=== PATIENT | male | born 1985 ===

== ENCOUNTER 2016-05-05 11:23 | Inpatient (IN) | payer SELFPAY ==
[2016-05-05] MEDS ORDERED: Piperacillin/Tazobact 3.375 gm Inj IVPB ONE (12:21)
[2016-05-05] MEDS ORDERED: Piperacillin/Tazobact 3.375 GM in Sodium Chloride 0.9% 100 ML IVPB STA (12:23)
--- NOTE | 2016-05-05 12:42 | ED PDOC ---
HPI: General Adult Time Seen by Provider: 05/05/16 11:42 Chief Complaint (Nursing): Fever Chief Complaint (Provider): Fever History Per: Patient Additional Complaint(s): Pt. states on Monday he developed fever which resolved after taking Dayquil. Yesterday fever returned along with R sided facial pain and swelling. Pt. was seen by clinic and was instructed to come to ED for further evaluation. Denies sore throat, rash, cough, congestion, ear pain, headache. Of note, pt. states he is HIV+ and last viral load and CD4 count were done 2 months ago and were WNL. Past Medical History Reviewed: Historical Data, Nursing Documentation, Vital Signs Vital Signs: Last Vital Signs Temp 99.6 F 05/05/16 17:55 Pulse 78 05/05/16 17:55 Resp 18 05/05/16 18:09 BP 120/78 05/05/16 17:55 Pulse Ox 98 05/05/16 19:57 - Medical History PMH: HIV, Seizures - Family History Family History: States: No Known Family Hx - Immunization History Hx Tetanus Toxoid Vaccination: No Hx Influenza Vaccination: No Hx Pneumococcal Vaccination: No - Home Medications Home Medications: Ambulatory Orders Medication Instructions Recorded Darunavir/Cobicistat [Prezcobix 1 tab PO DAILY 05/05/16 800 mg-150 mg Tablet] Dolutegravir Sodium [Tivicay] 50 mg PO DAILY 05/05/16 Sulfamethoxazole/Trimethoprim 1 tab PO DAILY 05/05/16 [Bactrim DS Tab] Terbinafine HCl [Lamisil] 250 mg PO DAILY 05/05/16 - Allergies Allergies/Adverse Reactions: Allergies Allergy/AdvReac Type Severity Reaction Status Date / Time No Known Allergies Allergy Verified 05/05/16 11:36 Review of Systems ROS Statement: Except As Marked, All Systems Reviewed And Found Negative Constitutional: Positive for: Fever Physical Exam - Reviewed Nursing Documentation Reviewed: Yes Vital Signs Reviewed: Yes - Physical Exam Appears: Positive for: Well, Non-toxic, No Acute Distress Head Exam: Positive for: ATRAUMATIC, NORMAL INSPECTION, NORMOCEPHALIC Skin: Positive for: Normal Color, Warm, DRY Eye Exam: Positive for: EOMI, Normal appearance, PERRL ENT: Positive for: TM Is/Are (non-erythematous, non-bulging b/l), Other (R sided preauricular swelling without fluctuance and with mild tenderness; no mastoid tenderness b/l). Negative for: Pharyngeal Erythema, Tonsillar Exudate, Tonsillar Swelling Neck: Positive for: Normal, Painless ROM Cardiovascular/Chest: Positive for: Regular Rate, Rhythm Respiratory: Positive for: CNT, Normal Breath Sounds Gastrointestinal/Abdominal: Positive for: Normal Exam, Soft. Negative for: Tenderness Back: Positive for: Normal Inspection Extremity: Positive for: Normal ROM Neurologic/Psych: Positive for: Alert, Oriented - Laboratory Results Result Diagrams: 05/05/16 12:50 05/05/16 12:50 - ECG O2 Sat by Pulse Oximetry: 98 - Progress ED Course And Treament: Labs ordered. CT neck ordered. Zosyn IV given. Pt placed in isolation. Pt. evaluated by Dr. Ding in ED. Buccal mucosa mumps test done. [facility] and information given. Case d/w NATALIIA Malik resident, and arrangements made for admission. Disposition - Clinical Impression Clinical Impression: Parotitis - Patient ED Disposition Is Patient to be Admitted: Yes - Disposition Disposition Time: 17:03 Condition: STABLE
[2016-05-05 13:02] LABS: VENOUS BLOOD GAS PCO2 53 mmHg (40-60); VENOUS BLOOD PH 7.33 (7.32-7.43)
[2016-05-05 13:09] LABS: BASO % 0.6 % (0.0-2.0); EOS % 0.3 % (0.0-4.0); HEMATOCRIT 42.4 % (35.0-51.0); LYMPH # 1.7 K/uL (1.0-4.3); LYMPH % 33.4 % (20.0-40.0); MEAN CELL VOLUME 86.7 fl (80.0-94.0); MEAN CORPUSCULAR HEMOGLOBIN 28.7 pg (27.0-31.0); MEAN CORPUSCULAR HGB CONC 33.1 g/dL (33.0-37.0); MEAN PLATELET VOLUME 7.7 fl (7.2-11.7); MONO # 1.2 K/uL (0.0-0.8); MONO % 22.7 % (0.0-10.0); NEUT # 2.2 K/uL (1.8-7.0); NRBC % 0.2 % (0.0-0.0); PLATELET COUNT 221 K/uL (130-400); RED CELL DISTRIBUTION WIDTH 13.5 % (11.5-14.5); WHITE BLOOD COUNT 5.2 K/uL (4.8-10.8)
[2016-05-05 13:17] LABS: CHLORIDE 97 mmol/L (98-107)
[2016-05-05 13:18] LABS: POTASSIUM 4.4 MMOL/L (3.6-5.0); SODIUM 137 mmol/l (132-148)
[2016-05-05 13:20] LABS: ALKALINE PHOSPHATASE 84 U/L (38-126); ALT/SGPT 40 U/L (21-72); AST/SGOT 41 U/L (17-59); BILIRUBIN,TOTAL 0.7 mg/dl (0.2-1.3); BLOOD UREA NITROGEN 11 mg/dl (9-20); CARBON DIOXIDE 24 mmol/L (22-30); GFR AFRICAN-AMERICAN > 60; GLUCOSE,RANDOM 87 mg/dL (75-110)
[2016-05-05 13:21] LABS: CALCIUM 9.1 mg/dL (8.4-10.2)
--- NOTE | 2016-05-05 13:56 | RAD ---
PROCEDURE: Radiographs of the neck (soft tissue). HISTORY: R sided neck swelling COMPARISON: None. TECHNIQUE: Frontal and Lateral Radiographs of the neck, optimized for soft tissue visualization. FINDINGS: SOFT TISSUES: No prevertebral soft tissue swelling. No radiopaque foreign body seen. CERVICAL SPINE: There is straightening of the cervical spine with loss of normal cervical lordosis. The disc heights are maintained. OTHER FINDINGS: None. IMPRESSION: No evidence of prevertebral soft tissue swelling or radiopaque foreign body. Straightening of the cervical spine may be positional or related to muscle spasm.
[2016-05-05 14:23] LABS: RBC URINE < 1 /hpf (0-3); URINE BACTERIA RARE (<OCC); URINE BILIRUBIN NEGATIVE (NEGATIVE); URINE BLOOD NEGATIVE (NEGATIVE); URINE CALCIUM OXALATE CRYSTALS OCC /hpf (<OCC); URINE COLOR YELLOW (YELLOW); URINE GLUCOSE (UA) NEG (Normal); URINE KETONE 80 mg/dL (NEGATIVE); URINE LEUKOCYTE ESTERASE NEG Leu/uL (Negative); URINE PROTEIN 30 mg/dL (NEGATIVE); URINE UROBILINOGEN 0.2-1.0 mg/dL (0.2-1.0); WBC URINE 2 /hpf (0-5)
[2016-05-05 14:35] LABS: NEUTROPHIL 48 % (42-75); TOTAL CELLS COUNTED 100
[2016-05-05] MEDS ORDERED: Sodium Chloride 0.9% 50 ML IV ONE (16:09)
[2016-05-05] MEDS ORDERED: Iohexol 300 100 ML IJ ONE (16:09)
--- NOTE | 2016-05-05 16:52 | CT ---
PROCEDURE: CT NECK WITH CONTRAST HISTORY: R sided neck swelling COMPARISON: None TECHNIQUE: CT of the neck with intravenous contrast. Coronal and sagittal reformats generated. Intravenous contrast dose: 80 cc Omnipaque 300. Radiation dose: DLP 430.84 mGy-cm FINDINGS: NASOPHARYNX: Unremarkable. SUPRAHYOID NECK: Unremarkable oropharynx, oral cavity, parapharyngeal space and retropharyngeal space. INFRAHYOID NECK: Unremarkable larynx, hypopharynx, and supraglottic space. Vocal cords intact. MASS: None. GLANDS: Edematous hypervascular findings in the right parotid gland affecting both deep and superficial lobes consistent with acute parotitis. Adjacent cutaneous and subcutaneous edema noted. No evidence of dilated duct or stone within the duct. Normal size thyroid gland, without nodule. LYMPH NODES: Normal. No lymphadenopathy. CERVICAL SPINE: No fracture or focal lesion. VASCULAR STRUCTURES: Unremarkable. OTHER FINDINGS: None. IMPRESSION: Acute, unilateral parotitis. Inflammatory changes involve both superficial and deep lobes of the right parotid gland. Adjacent edematous, inflammatory changes circumferentially extend towards the right mass upper muscle. No osseous abnormalities noted.
--- NOTE | 2016-05-05 17:34 | CP.PCM.HP ---
Addendum entered and electronically signed by King Núñez MD 05/05/16 17:49: Will add Vancomycin 750mg Q12H Coverage for gram positive, negative aerobes and anaerobes. Original Note: History of Present Illness - History of Present Illness History of Present Illness: 30 year old male with a history of AIDS, diagnosed in 2008 (Viral Load- undetectable; CD4 02/2016 124) presenting for evaluation after [facility] visit. Complains of 3 day history of right sided neck-jaw pain with swelling and mild erythema. Transient flu-like symptoms on day 2, resolved. Tactile fever, TMax 100.6 at [facility]. No nausea, vomiting, diarrhea. Denies dysphagia. No shortness of breath, palpitations, pleurisy, chest pain, cough or sputum production. No history of trauma. Vaccinations up to date. Adherent to ART therapy as outpatient. Not taking any OTC medications for pain management or fever control. No sick contacts. No recent travel. Present on Admission - Present on Admission Any Indicators Present on Admission: No Review of Systems - Review of Systems Review of Systems: As per HPI. Past Patient History - Past Social History Smoking Status: Never Smoked - NEUROLOGICAL Hx Seizures: Yes - HEMATOLOGICAL/ONCOLOGICAL Hx Human Immunodeficiency Virus (HIV): Yes - PSYCHIATRIC Hx Substance Use: No Meds Allergies/Adverse Reactions: Allergies Allergy/AdvReac Type Severity Reaction Status Date / Time No Known Allergies Allergy Verified 05/05/16 11:36 Physical Exam - Head Exam Head Exam: ATRAUMATIC, NORMOCEPHALIC - Eye Exam Eye Exam: EOMI, Normal appearance - ENT Exam ENT Exam: Mucous Membranes Moist - Neck Exam Additional comments: Right sided submandibular-parotid swelling, tender, warm. [id number] No ant. cervical LAD. No supraclavicular LAD. - Respiratory Exam Respiratory Exam: NORMAL BREATHING PATTERN. absent: Rales, Rhonchi, Wheezes - Cardiovascular Exam Cardiovascular Exam: REGULAR RHYTHM, +S1, +S2 - GI/Abdominal Exam GI & Abdominal Exam: Normal Bowel Sounds, Soft. absent: Distended, Tenderness - Extremities Exam Extremities exam: Positive for: full ROM, pedal pulses present. Negative for: pedal edema, tenderness - Neurological Exam Neurological exam: Alert, CN II-XII Intact, Oriented x3 Results - Vital Signs Recent Vital Signs: Last Vital Signs Temp 99.6 F 05/05/16 14:16 Pulse 77 05/05/16 14:16 Resp 19 05/05/16 14:16 BP 124/73 05/05/16 14:16 Pulse Ox 98 05/05/16 14:16 - Labs Result Diagrams: 05/05/16 12:50 05/05/16 12:50 Assessment & Plan - Assessment and Plan (Free Text) Assessment: 30 year old male with a history of AIDS presenting with 3 day history of right submandibular-parotid swelling, associated with transient flu-like symptoms and fever. Plan: 1. Parotitis, right, acute CT Neck: Acute, unilateral parotitis. Inflammatory changes involve both superficial and deep lobes of the right parotid gland. Adjacent edematous, inflammatory changes circumferentially extend towards the right mass upper muscle. No osseous abnormalities noted. ED Course: IV Zosyn No Leukocytosis Afebrile a. Continue Zosyn b. Tylenol PRN for fever c. NSAIDs for pain 2. AIDS 02/2016 CD4: 124 Viral Load Undetecable a. Continue Prezcobix and Tivicay b. Bactrim for Px 3. VTE Px a. Low risk- SCDs
[2016-05-05] MEDS: Piperacillin/Tazobact 4.5 GM in Sodium Chloride 0.9% 100 ML IVPB SCH (22:54)
[2016-05-06] MEDS: Piperacillin/Tazobact 4.5 GM in Sodium Chloride 0.9% 100 ML IVPB SCH ×4 (04:00→22:45)
--- NOTE | 2016-05-06 07:20 | CP.PCM.PN ---
Subjective - Date & Time of Evaluation Date of Evaluation: 05/06/16 Time of Evaluation: 07:20 - Subjective Subjective: 30 year old male with a history of AIDS, diagnosed in 2008 (Viral Load- undetectable; CD4 02/2016 124) presented for evaluation of swollen right side of face, neck and jaw with erythema and pain. Patient states that today, he right side of his is less swollen and painful. He states that he was even able to sleep on the right side of his face last night. He denies n/v/f/c/sob/cp. Objective - Vital Signs/Intake and Output Vital Signs (last 24 hours): Temp Pulse Resp BP Pulse Ox 99.7 F H 64 18 119/70 98 05/05/16 22:00 05/05/16 22:00 05/05/16 22:00 05/05/16 22:00 05/05/16 22:00 - Medications Medications: Current Medications Acetaminophen (Tylenol 325mg Tab) 650 mg PO Q6 PRN PRN Reason: Fever >100.4 F Dolutegravir Sodium (Tivicay) 50 mg PO DAILY [facility] Home Med (Terbinafine Hcl [Lamisil]) 250 mg PO DAILY [facility] Piperacillin Sod/Tazobactam (Sod 4.5 gm/ Sodium Chloride) 100 mls @ 100 mls/hr IVPB Q6 [facility] Last Admin: 05/06/16 04:00 Dose: 100 mls/hr Vancomycin HCl 750 mg/ Sodium (Chloride) 250 mls @ 166.667 mls/hr IVPB Q12 [facility] Last Admin: 05/05/16 20:56 Dose: 166.667 mls/hr Ibuprofen (Motrin Tab) 400 mg PO Q6 PRN PRN Reason: Pain, moderate (4-7) Trimethoprim/Sulfamethoxazole (Bactrim Ds Tab) 1 tab PO DAILY [facility] - Constitutional Appears: Well, Non-toxic, No Acute Distress - Head Exam Head Exam: ATRAUMATIC, NORMAL INSPECTION - Eye Exam Eye Exam: EOMI, Normal appearance - ENT Exam ENT Exam: Mucous Membranes Moist - Neck Exam Additional comments: Right sided submandibular-parotid swelling, tender, warm, measures approximately [id number] No ant. cervical LAD. No supraclavicular LAD. - Respiratory Exam Respiratory Exam: NORMAL BREATHING PATTERN. absent: Rales, Rhonchi, Wheezes - Cardiovascular Exam Cardiovascular Exam: REGULAR RHYTHM, +S1, +S2 - GI/Abdominal Exam GI & Abdominal Exam: Soft, Normal Bowel Sounds. absent: Distended - Extremities Exam Extremities Exam: Full ROM, Normal Inspection. absent: Pedal Edema, Tenderness - Back Exam Back Exam: NORMAL INSPECTION - Neurological Exam Neurological Exam: Alert, Awake, Oriented x3 - Psychiatric Exam Psychiatric exam: Normal Affect, Normal Mood - Skin Skin Exam: Dry, Normal Color, Warm Assessment and Plan - Assessment and Plan (Free Text) Assessment: 30 year old male with a history of AIDS presenting with 3 day history of right submandibular-parotid swelling, fever, and transient flu-like symptoms. Plan: 1. Parotitis, right sided, acute -CT Neck:Acute, unilateral parotitis. Inflammatory changes involve both superficial and deep lobes of the right parotid gland. Adjacent edematous, inflammatory changes circumferentially extend towards the right mass upper muscle. No osseous abnormalities noted. -Continue IV abx: Zosyn 4.5g IVPB Q6, Vancomycin 750mg IVPB Q12 -afebrile -Tylenol 650 mg PRN fever -Ibuprofen 400 mg PO Q6 PRN pain -follow up mumps titers -Flu negative 2. AIDS -February 2016 CD -Continue Prezcobix and Tivicay -Bactrim PO for ppx 3. VTE ppx -Lovenox 40mg SC daily
[2016-05-06] MEDS: Tmp-Smz 800 mg-160 mg DS Tab PO SCH (08:59)
[2016-05-06 15:07] LABS: MUMPS VIRUS AB (IGG) >5.00 (>/=1.10)
[2016-05-06] MEDS: Enoxaparin 40 mg Syringe SC SCH ×2 (16:30→16:39)
[2016-05-07] MEDS: Piperacillin/Tazobact 4.5 GM in Sodium Chloride 0.9% 100 ML IVPB SCH ×4 (04:00→22:55)
[2016-05-07] MEDS: Enoxaparin 40 mg Syringe SC SCH ×2 (08:49→08:52)
[2016-05-07] MEDS: Tmp-Smz 800 mg-160 mg DS Tab PO SCH (08:50)
--- NOTE | 2016-05-07 11:51 | CP.PCM.PN ---
Subjective - Date & Time of Evaluation Date of Evaluation: 05/07/16 Time of Evaluation: 08:15 - Subjective Subjective: No over-night events. Patient reports improved pain scale. No nausea, vomiting, diarrhea. Tolerating PO intake. TMax 100.3 No dysphagia or shortness of breath. Objective - Vital Signs/Intake and Output Vital Signs (last 24 hours): Temp Pulse Resp BP Pulse Ox 99.2 F 72 18 103/67 98 05/07/16 08:32 05/07/16 08:32 05/07/16 08:32 05/07/16 08:32 05/07/16 08:32 - Medications Medications: Current Medications Acetaminophen (Tylenol 325mg Tab) 650 mg PO Q6 PRN PRN Reason: Fever >100.4 F Dolutegravir Sodium (Tivicay) 50 mg PO DAILY [facility] Last Admin: 05/07/16 08:49 Dose: 50 mg Enoxaparin Sodium (Lovenox) 40 mg SC DAILY [facility] PRN Reason: Protocol Last Admin: 05/07/16 08:52 Dose: Not Given Home Med (Terbinafine Hcl [Lamisil]) 250 mg PO DAILY [facility] Piperacillin Sod/Tazobactam (Sod 4.5 gm/ Sodium Chloride) 100 mls @ 100 mls/hr IVPB Q6 [facility] Last Admin: 05/07/16 09:01 Dose: 100 mls/hr Vancomycin HCl 750 mg/ Sodium (Chloride) 250 mls @ 166.667 mls/hr IVPB Q12 [facility] Last Admin: 05/07/16 08:50 Dose: 166.667 mls/hr Ibuprofen (Motrin Tab) 400 mg PO Q6 PRN PRN Reason: Pain, moderate (4-7) Trimethoprim/Sulfamethoxazole (Bactrim Ds Tab) 1 tab PO DAILY [facility] Last Admin: 05/07/16 08:50 Dose: 1 tab - Head Exam Head Exam: ATRAUMATIC, NORMOCEPHALIC - Eye Exam Eye Exam: EOMI - ENT Exam Additional comments: Swelling improved on right Less erythema Less tender No ant cervical LAD Throat clear; no exudates - Cardiovascular Exam Cardiovascular Exam: REGULAR RHYTHM, +S1, +S2 Assessment and Plan - Assessment and Plan (Free Text) Plan: 1. Parotitis, right sided, acute Improved; Low grade fever -CT Neck:Acute, unilateral parotitis. Inflammatory changes involve both superficial and deep lobes of the right parotid gland. Adjacent edematous, inflammatory changes circumferentially extend towards the right mass upper muscle. No osseous abnormalities noted. -Continue IV abx: Zosyn 4.5g IVPB Q6, Vancomycin 750mg IVPB Q12 -Tylenol 650 mg PRN fever -Ibuprofen 400 mg PO Q6 PRN pain -Follow up mumps titers IgM -Flu negative -Cultures negative 2. AIDS -February 2016 CD4:124 -Continue Prezcobix and Tivicay -Bactrim PO for ppx 3. VTE Px -Lovenox 40mg SC daily
[2016-05-07 16:13] VITALS: TEMP 98.6
[2016-05-07 20:05] VITALS: O2SAT 100
[2016-05-08] MEDS: Piperacillin/Tazobact 4.5 GM in Sodium Chloride 0.9% 100 ML IVPB SCH ×2 (03:53→10:32)
[2016-05-08 07:57] LABS: HEMATOCRIT 36.7 % (35.0-51.0); MEAN CORPUSCULAR HEMOGLOBIN 28.7 pg (27.0-31.0); MEAN CORPUSCULAR HGB CONC 33.4 g/dL (33.0-37.0); RED CELL DISTRIBUTION WIDTH 13.6 % (11.5-14.5); WHITE BLOOD COUNT 3.7 K/uL (4.8-10.8)
[2016-05-08 08:08] VITALS: BP 99/61; PULSE 58; RESP 20
[2016-05-08] MEDS: Tmp-Smz 800 mg-160 mg DS Tab PO SCH (09:27)
[2016-05-08] MEDS: Enoxaparin 40 mg Syringe SC SCH (09:27)
--- NOTE | 2016-05-08 13:15 | CP.PCM.DIS ---
Provider - Provider Date of Admission: 05/06/16 11:29 Attending physician: Tahira Flores MD Time Spent in preparation of Discharge (in minutes): 30 Hospital Course - Lab Results Lab Results: Most Recent Lab Values WBC 3.7 K/uL (4.8-10.8) L 05/08/16 05:30 RBC 4.26 Mil/uL (4.40-5.90) L 05/08/16 05:30 Hgb 12.2 g/dL (12.0-18.0) 05/08/16 05:30 Hct 36.7 % (35.0-51.0) 05/08/16 05:30 MCV 86.0 fl (80.0-94.0) 05/08/16 05:30 MCH 28.7 pg (27.0-31.0) 05/08/16 05:30 MCHC 33.4 g/dL (33.0-37.0) 05/08/16 05:30 RDW 13.6 % (11.5-14.5) 05/08/16 05:30 Plt Count 184 K/uL (130-400) 05/08/16 05:30 MPV 7.7 fl (7.2-11.7) 05/05/16 12:50 Neut % (Auto) 43.0 % (50.0-75.0) L 05/05/16 12:50 Lymph % (Auto) 33.4 % (20.0-40.0) 05/05/16 12:50 Humphreys % (Auto) 22.7 % (0.0-10.0) H 05/05/16 12:50 Eos % (Auto) 0.3 % (0.0-4.0) 05/05/16 12:50 Baso % (Auto) 0.6 % (0.0-2.0) 05/05/16 12:50 Neut # 2.2 K/uL (1.8-7.0) 05/05/16 12:50 Lymph # 1.7 K/uL (1.0-4.3) 05/05/16 12:50 Humphreys # 1.2 K/uL (0.0-0.8) H 05/05/16 12:50 Eos # 0.0 K/uL (0.0-0.7) 05/05/16 12:50 Baso # 0.0 K/uL (0.0-0.2) 05/05/16 12:50 Neutrophils % (Manual) 48 % (42-75) 05/05/16 12:50 Band Neutrophils % 2 % (0-2) 05/05/16 12:50 Lymphocytes % (Manual) 30 % (20-50) 05/05/16 12:50 Monocytes % (Manual) 20 % (0-10) H 05/05/16 12:50 Platelet Estimate Normal (NORMAL) 05/05/16 12:50 RBC Morphology Normal (NORMAL) 05/05/16 12:50 pO2 22 mm/Hg (30-55) L 05/05/16 12:56 VBG pH 7.33 (7.32-7.43) 05/05/16 12:56 VBG pCO2 53 mmHg (40-60) 05/05/16 12:56 VBG HCO3 23.9 mmol/L 05/05/16 12:56 VBG Total CO2 29.5 mmol/L (22-28) H 05/05/16 12:56 VBG O2 Sat (Calc) 29.8 % (40-65) L 05/05/16 12:56 VBG Base Excess 1.0 mmol/L (0.0-2.0) 05/05/16 12:56 VBG Potassium 4.2 mmol/L (3.6-5.2) 05/05/16 12:56 Sodium 135.0 mmol/L (132-148) 05/05/16 12:56 Chloride 99.0 mmol/L (98-107) 05/05/16 12:56 Glucose 86 mg/dL (75-110) 05/05/16 12:56 Lactate 1.7 mmol/L (0.7-2.1) 05/05/16 12:56 FiO2 21.0 % 05/05/16 12:56 Sodium 137 mmol/l (132-148) 05/05/16 12:50 Potassium 4.4 MMOL/L (3.6-5.0) 05/05/16 12:50 Chloride 97 mmol/L (98-107) L 05/05/16 12:50 Carbon Dioxide 24 mmol/L (22-30) 05/05/16 12:50 Anion Gap 20 (10-20) 05/05/16 12:50 BUN 11 mg/dl (9-20) 05/05/16 12:50 Creatinine 0.9 mg/dL (0.8-1.5) 05/05/16 12:50 Est GFR ( Amer) > 60 05/05/16 12:50 Est GFR (Non-Af Amer) > 60 05/05/16 12:50 Random Glucose 87 mg/dL (75-110) 05/05/16 12:50 Calcium 9.1 mg/dL (8.4-10.2) 05/05/16 12:50 Total Bilirubin 0.7 mg/dl (0.2-1.3) 05/05/16 12:50 AST 41 U/L (17-59) 05/05/16 12:50 ALT 40 U/L (21-72) 05/05/16 12:50 Alkaline Phosphatase 84 U/L (38-126) 05/05/16 12:50 Total Protein 9.0 G/DL (6.3-8.2) H 05/05/16 12:50 Albumin 4.6 g/dL (3.5-5.0) 05/05/16 12:50 Globulin 4.4 gm/dL (2.2-3.9) H 05/05/16 12:50 Albumin/Globulin Ratio 1.0 (1.0-2.1) 05/05/16 12:50 Venous Blood Potassium 4.2 mmol/L (3.6-5.2) 05/05/16 12:56 Urine Color Yellow (YELLOW) 05/05/16 14:00 Urine Clarity Clear (Clear) 05/05/16 14:00 Urine pH 5.0 (5.0-8.0) 05/05/16 14:00 Ur Specific [place] 1.027 (1.003-1.030) 05/05/16 14:00 Urine Protein 30 mg/dL (NEGATIVE) 05/05/16 14:00 Urine Glucose (UA) Neg mg/dL (Normal) 05/05/16 14:00 Urine Ketones 80 mg/dL (NEGATIVE) 05/05/16 14:00 Urine Blood Negative (NEGATIVE) 05/05/16 14:00 Urine Nitrate Negative (NEGATIVE) 05/05/16 14:00 Urine Bilirubin Negative (NEGATIVE) 05/05/16 14:00 Urine Urobilinogen 0.2-1.0 mg/dL (0.2-1.0) 05/05/16 14:00 Ur Leukocyte Esterase Neg Manuela/uL (Negative) 05/05/16 14:00 Urine RBC (Auto) < 1 /hpf (0-3) 05/05/16 14:00 Urine Microscopic WBC 2 /hpf (0-5) 05/05/16 14:00 Calcium Oxalate Crystal Occ /hpf (<OCC) H 05/05/16 14:00 Urine Bacteria Rare (<OCC) 05/05/16 14:00 Influenza Typ A,B (EIA) Negative for flu a/b (NEGATIVE) 05/05/16 12:50 Mumps Virus IgG Ab >5.00 (>/=1.10) 05/05/16 12:50 Grp A Beta Strep Ag Negative (NEGATIVE) 05/05/16 12:50 - Hospital Course Hospital Course: 30 year old male with a history of HIV Dx'd 2008 on HAART therapy, Viral Load undetecable, CD4 count 124 02/2016. Presented with a 3 day history of right sided face/jaw swelling, fever. CT Confirmed acute parotitis. Admitted and treated for acute parotitis with Vancomycin and Zosyn. Viral culture negative. Blood culture negative. Mumps IgG >5.0. IgM PENDING. Isolated throughout admission. Swelling and pain resolved. Discharged with 10 days of Bactrim DS and Augmentin for 7 days. Discharge Exam - Head Exam Head Exam: ATRAUMATIC, NORMOCEPHALIC - Eye Exam Eye Exam: EOMI, Normal appearance - Neck Exam Neck exam: Full Rom - Respiratory Exam Respiratory Exam: NORMAL BREATHING PATTERN. absent: Rales, Rhonchi, Wheezes - Cardiovascular Exam Cardiovascular Exam: REGULAR RHYTHM, +S1, +S2 - GI/Abdominal Exam GI & Abdominal Exam: Soft. absent: Distended, Tenderness - Extremities Exam Extremities exam: full ROM Discharge Plan - Discharge Medications Prescriptions: Amoxicillin/Clavulanate [Augmentin 875 MG-125 MG] 1 tab PO BID #14 tab Sulfamethoxazole/Trimethoprim [Bactrim DS 800 mg-160 mg] 1 tab PO BID #20 tab - Follow Up Plan Condition: STABLE Disposition: HOME/ ROUTINE
[2016-05-10 20:25] LABS: MUMPS VIRUS AB (IGM) <1:20 (())
== END 2016-05-08 13:49 | disposition home or self-care (01) | DRG 586 ==
LOC: H.ER 11:23 → INTOOBSV 17:12 → H.ERHOLD 17:12 → H.MEDSURG1 18:11 → OBSVTOIN 05-06 11:29
PROVIDERS: ADMIT Family Medicine Geriatric Medicine; ATTEND Family Medicine Geriatric Medicine
DX: K11.21 Acute sialoadenitis (principal); B20 Human immunodeficiency virus [HIV] disease; Z79.899 Other long term (current) drug therapy

== ENCOUNTER 2016-10-04 02:25 | Emergency (ER) | payer SELFPAY ==
[2016-10-04 02:46] VITALS: BP 117/84; PULSE 96; RESP 16; TEMP 98; O2SAT 98
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
== END 2016-10-04 04:24 | disposition home or self-care (01) ==
LOC: H.ER 02:25
DX: S02.2XXA Fracture of nasal bones, initial encounter for closed fracture (principal); S00.81XA Abrasion of other part of head, initial encounter; H11.31 Conjunctival hemorrhage, right eye

== ENCOUNTER 2017-08-12 21:13 | Emergency (ER) | payer OTHER ==
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
[2017-08-12 22:25] LABS: BASO # 0.1 K/uL (0.0-0.2); EOS # 0.3 K/uL (0.0-0.7); EOS % 6.4 % (0.0-4.0); HEMOGLOBIN 15.2 g/dL (12.0-18.0); LYMPH # 1.6 K/uL (1.0-4.3); LYMPH % 30.9 % (20.0-40.0); MEAN CELL VOLUME 85.4 fl (80.0-94.0); MEAN CORPUSCULAR HGB CONC 33.9 g/dL (33.0-37.0); MEAN PLATELET VOLUME 7.3 fl (7.2-11.7); MONO # 0.5 K/uL (0.0-0.8); MONO % 10.3 % (0.0-10.0); NEUT # 2.7 K/uL (1.8-7.0); NEUT % 51.4 % (50.0-75.0); NRBC % 0.1 % (0.0-0.0); RBC 5.25 Mil/uL (4.40-5.90); RED CELL DISTRIBUTION WIDTH 12.8 % (11.5-14.5); WHITE BLOOD COUNT 5.2 K/uL (4.8-10.8)
[2017-08-12 22:30] LABS: ALB/GLOB RATIO 0.9 (1.0-2.1); ALBUMIN 4.6 g/dL (3.5-5.0); ALT/SGPT 43 U/L (21-72); AST/SGOT 48 U/L (17-59); BLOOD UREA NITROGEN 8 mg/dl (9-20); CALCIUM 9.4 mg/dL (8.4-10.2); GFR AFRICAN-AMERICAN > 60; GFR NON-AFRICAN AMERICAN > 60
[2017-08-12] MEDS ORDERED: Potassium Chloride 20 mEq ER Tab PO ONE (22:55)
[2017-08-12] MEDS ORDERED: Tdap Vaccine 0.5 ml Vial (10-64 yrs) IM ONE (23:06)
[2017-08-12] MEDS ORDERED: Lidocaine 2% w Epi 1:100,000 Inj IJ ONE (23:10)
[2017-08-13] MEDS: Sodium Chloride 0.9% 1,000 ML IV SCH ×2 (00:01→01:23)
[2017-08-13] MEDS ORDERED: Potassium Chloride 20 mEq ER Tab PO ONE (00:20)
[2017-08-13] MEDS ORDERED: Tetanus/Diphtheria Toxoids 0.5 ml Syringe IM ONE (00:21)
[2017-08-13 01:01] VITALS: PULSE 77; TEMP 98.3
[2017-08-13 03:30] LABS: BENZODIAZEPINES, UR NEGATIVE (NEGATIVE)
[2017-08-13 03:35] LABS: BARBITURATES, UR NEGATIVE (NEGATIVE); OPIATES, UR NEGATIVE (NEGATIVE); PHENCYCLIDINE, UR NEGATIVE (NEGATIVE)
[2017-08-13 04:19] VITALS: BP 122/71; RESP 14; O2SAT 99
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
--- NOTE | 2017-08-13 11:18 | CARD ---
APPROVED REPORT EKG Measurement Heart [id number] <Conclusion> Normal sinus rhythm Voltage criteria for left ventricular hypertrophy Abnormal ECG
== END 2017-08-13 04:18 | disposition home or self-care (01) ==
LOC: H.ER 21:13
DX: S09.93XA Unspecified injury of face, initial encounter (principal); S01.111A Laceration without foreign body of right eyelid and periocular area, initial encounter; S00.81XA Abrasion of other part of head, initial encounter; F10.129 Alcohol abuse with intoxication, unspecified; W01.10XA Fall on same level from slipping, tripping and stumbling with subsequent striking against unspecified object, initial encounter
CPT/HCPCS: 12013; 70450; 70486; 80053; 80320; 80324; 80345; 80346; 80349; 80353; 80358; 80361; 82948; 83735; 83992; 84100; 85025; 90471; 90715; 93005; 96360; 96361; 99284; J7030